=== PATIENT | male | born 1945 | race Caucasian/White ===

== ENCOUNTER 2023-07-07 22:50 | Emergency (ER) | payer MEDICARE, OTHER ==
[2023-07-07 22:59] VITALS: BP 178/55; PULSE 76
== END 2023-07-07 23:22 | disposition home or self-care (01) ==
LOC: CC.ED 22:50
DX: I97.630 Postprocedural hematoma of a circulatory system organ or structure following a cardiac catheterization (principal); Z88.5 Allergy status to narcotic agent; Z87.891 Personal history of nicotine dependence
CPT/HCPCS: 99283

== ENCOUNTER 2023-10-30 08:46 | Emergency (ER) | payer MEDICARE, OTHER ==
[2023-10-30 09:20] LABS: BASOPHILS ABSOLUTE AUTO 0.05 10^3/uL (0.00-0.50); BASOPHILS PERCENT AUTO 0.5 % (0-1); EOSINOPHILS ABSOLUTE AUTO 0.09 10^3/uL (0.00-1.50); HEMATOCRIT 32.8 % (42.0-52.0); HEMOGLOBIN 11.3 g/dL (14.0-18.0); IMMATURE GRAN ABSOLUTE AUTO 0.02 10^3/uL (0.00-0.49); IMMATURE GRAN PERCENT AUTO 0.2 % (0.0-4.9); LYMPHOCYTES ABSOLUTE AUTO 1.04 10^3/uL (0.60-5.00); MEAN CORPUSCULAR HEMOGLOBIN 30.6 pg (27.0-32.0); MEAN CORPUSCULAR HGB CONC 34.5 g/dL (32.0-36.0); MEAN CORPUSCULAR VOLUME 88.9 fL (83.0-97.0); MONOCYTES ABSOLUTE AUTO 1.01 10^3/uL (0.00-1.50); MONOCYTES PERCENT AUTO 10.7 % (0-10); NEUTROPHILS ABSOLUTE AUTO 7.23 x10^3/uL (1.80-8.00); NEUTROPHILS PERCENT AUTO 76.6 % (41-71); PLATELET COUNT,PLT 175 10^3/uL (150-400); RED BLOOD CELL COUNT 3.69 x10^6/uL (4.50-6.00); WHITE BLOOD CELL COUNT,WBC 9.4 10^3/uL (4.0-11.0)
[2023-10-30 09:31] LABS: INR 0.99 (0.92-1.18); PROTHROMBIN TIME 10.4 SEC (9.3-11.3); PTT,PARTIAL THROMBOPLSTIN TIME 25.1 SEC (20.0-30.0)
[2023-10-30 09:33] LABS: ALBUMIN 3.9 g/dL (3.4-5.0); BILIRUBIN TOTAL 1.2 mg/dL (0.0-1.0); C-REACTIVE PROTEIN 2.05 mg/dL (<=0.50); CALCIUM 8.6 mg/dL (8.4-10.1); CREATININE 1.3 mg/dL (0.7-1.3); EST CRCL DRUG DOSING (CG) 49.91 mL/min; POTASSIUM,K 3.8 mEq/L (3.5-5.0); PROTEIN TOTAL,TP 6.6 g/dL (6.4-8.2)
== END 2023-10-30 10:45 | disposition critical access hospital (66) ==
LOC: CC.ED 08:46
DX: R47.01 Aphasia (principal); I10 Essential (primary) hypertension; E11.9 Type 2 diabetes mellitus without complications; Z79.84 Long term (current) use of oral hypoglycemic drugs; Z79.899 Other long term (current) drug therapy; Z88.5 Allergy status to narcotic agent
CPT/HCPCS: 36415; 71046; 80053; 84484; 85025; 85610; 85730; 86140; 93005; 93010; 99285

== ENCOUNTER 2025-05-19 07:41 | Emergency (ER) | payer MEDICARE, OTHER ==
[2025-05-19 08:08] LABS: BASOPHILS ABSOLUTE AUTO 0.09 10^3/uL (0.00-0.50); BASOPHILS PERCENT AUTO 0.9 % (0-1); EOSINOPHILS ABSOLUTE AUTO 0.04 10^3/uL (0.00-1.50); EOSINOPHILS PERCENT AUTO 0.4 % (0-6); IMMATURE GRAN ABSOLUTE AUTO 0.03 10^3/uL (0.00-0.49); IMMATURE GRAN PERCENT AUTO 0.3 % (0.0-4.9); LYMPHOCYTES ABSOLUTE AUTO 0.74 10^3/uL (0.60-5.00); LYMPHOCYTES PERCENT AUTO 7.2 % (24-44); MONOCYTES ABSOLUTE AUTO 1.04 10^3/uL (0.00-1.50); MONOCYTES PERCENT AUTO 10.1 % (0-10); NEUTROPHILS ABSOLUTE AUTO 8.31 x10^3/uL (1.80-8.00); NEUTROPHILS PERCENT AUTO 81.1 % (41-71); PLATELET COUNT,PLT 217 10^3/uL (150-400); RED BLOOD CELL COUNT 3.82 x10^6/uL (4.50-6.00); WHITE BLOOD CELL COUNT,WBC 10.3 10^3/uL (4.0-11.0)
[2025-05-19 08:16] LABS: INR 1.06 (0.92-1.18)
[2025-05-19 08:24] LABS: ALANINE AMINOTRANSFERASE,ALT 193 U/L (12-78); ASPARTATE AMNIOTRANSFERASE,AST 201 U/L (15-37); BILIRUBIN TOTAL 3.3 mg/dL (0.0-1.0); BLOOD UREA NITROGEN,BUN 23 mg/dL (7-18); CARBON DIOXIDE,CO2 27 mmol/L (21-32); CHLORIDE,CL 98 mEq/L (98-106); CREATINE KINASE,CK 85 U/L (35-232); CREATININE 1.2 mg/dL (0.7-1.3); GLUCOSE RANDOM 279 mg/dL (75-99); POTASSIUM,K 4.2 mEq/L (3.5-5.0); PROTEIN TOTAL,TP 6.3 g/dL (6.4-8.2); SODIUM,NA 136 mEq/L (136-145)
[2025-05-19] MEDS: Carbidopa/Levodopa 25-100 MG Tab.ER PO ONE (08:26)
[2025-05-19 08:29] LABS: ESTIMATED GFR 62 mL/min (>=60)
[2025-05-19] MEDS: Iopamidol 755 Mg/ML 100 ML Bottle IVPUSH ONE (09:09)
== END 2025-05-19 13:00 ==
LOC: CC.ED 07:41
DX: G45.9 Transient cerebral ischemic attack, unspecified (principal); R79.89 Other specified abnormal findings of blood chemistry; R94.5 Abnormal results of liver function studies; I10 Essential (primary) hypertension; E11.40 Type 2 diabetes mellitus with diabetic neuropathy, unspecified; J45.909 Unspecified asthma, uncomplicated; M19.90 Unspecified osteoarthritis, unspecified site; Z79.899 Other long term (current) drug therapy
CPT/HCPCS: 36415; 70450; 70496; 70498; 71046; 76705; 80053; 82550; 83690; 84484; 85025; 85610; 93005; 93010; 99284; 99285; A9270-GY; Q9967